=== PATIENT | female | born 1935 | race Two or more races ===

== ENCOUNTER 2017-06-21 11:41 | Emergency (ER) | payer MEDICARE, BC ==
--- OUTSIDE RECORDS SUMMARY | 2017-06-21 12:16 | XMS REPORT ---
:1935 External Reference #:[id number] Author Organization [facility] [employer] Address [address] [place] [address] Phone [phone] Care Team Providers Name Role Phone Luis Enrique Maldonado M.D. Care Team Information Brain Surgeon Unavailable Liliam Whiting MD Primary Care Physician Unavailable Payers Type Date Identification Numbers Payment Provider Subscriber Medicare Primary Policy Number: [id number] Medicare Micki Price PayID: [id number] [address] [place] [address] Commercial Policy Number: [id number] [facility] [place] [facility] [place] Jordin Price PayID: [id number] [address] [address] [place] [address] Problems Date Description Provider Status Onset: 04/22/2011 Posterior rhinorrhea Mynor Mason M.D. Active Onset: 04/22/2011 Gastroesophageal reflux disease Mynor Mason M.D. Active Onset: 04/22/2011 Chronic rhinitis Mynor Mason M.D. Active Family History Date Family Member(s) Problem(s) Comments General None Social History Type Date Description Comments Marital Status Occupation Retired Cigarette Use Used To Smoke Cigarettes But Quit. ETOH Use Current Alcohol Use - 1-3 Days A Week. Recreational Drug Use Denies Drug Use Smoking Patient has never smoked Allergies, Adverse Reactions, Alerts Date Description Reaction Status Severity Comments 05/20/2010 sulfa active hives Medications Medication Date Status Form Strength Qnty SIG Indications Ordering Provider Breast 01/22/ Active 1units wear on Z08 Ho Woon Prosthesis, 2017 the left MD Jemal Left Side chest Aspir-81 00/00/ Active Tablets DR 81mg 1 po qd Unknown 0000 Vitamin D 00/00/ Active Capsules 1000Unit 1 po qd Unknown 0000 Centrum 00/00/ Active Tablets 1 po qd Unknown Silver 0000 Citracal Plus 00/00/ Active Tablets 1 tab po Unknown 0000 bid Aleve 00/00/ Active Capsules 220mg Unknown 0000 Zetia 0000/ Active Tablets 10mg 1 by mouth Unknown 0000 once a day B Complex /00/ Hx Capsules 1 po qd Unknown - 2016 Prednisone /00/ Hx Tablets 2.5mg 2tabs 1 po qod Unknown 0000 - 2015 Ibandronate /00/ Hx Tablets 150mg q month Unknown Sodium - 2016 Flonase / Hx Suspension 50mcg/Act 1units 1 spray Unknown 0000 - both 03/29/ nostrils 2013 qd Omeprazole / Hx Capsules DR 20mg 30caps 1 po qd Unknown - 2014 Ibuprofen / Hx Tablets 200mg 50tabs prn Unknown - 2014 Benadryl / Hx Tablets 25mg 15tabs prn Unknown - 2014 Tagamet HB / Hx Tablets 200mg 1 PO qd Unknown - 2014 Claritin / Hx Capsules 10mg 30caps 1 by mouth Unknown 0000 - every day 2016 Ranitidine 00/ Hx Capsules 150mg 1 by mouth Unknown HCL 0000 - twice a 2016 Vital Signs Date Vital Result Comment 06/09/2017 Weight 152.00 lb Height 63 inches 5'3" BMI (Body Mass Index) 26.9 kg/m2 BP Systolic 149 mmHg BP Diastolic 81 mmHg Heart Rate 63 /min O2 % BldC Oximetry 97 % Body Temperature 98.3 F Pain Level 0 01/22/2017 Weight 150.12 lb Height 63 inches 5'3" BMI (Body Mass Index) 26.6 kg/m2 BP Systolic 124 mmHg BP Diastolic 82 mmHg Heart Rate 82 /min O2 % BldC Oximetry 99 % Body Temperature 97.1 F 01/13/2017 Weight 147.00 lb Height 63 inches 5'3" BMI (Body Mass Index) 26.0 kg/m2 BP Systolic 124 mmHg BP Diastolic 76 mmHg Heart Rate 82 /min O2 % BldC Oximetry 99 % Body Temperature 97.1 F 12/18/2016 Weight 146.00 lb Height 63 inches 5'3" BMI (Body Mass Index) 25.9 kg/m2 BP Systolic 118 mmHg BP Diastolic 76 mmHg Heart Rate 82 /min O2 % BldC Oximetry 99 % Body Temperature 97.1 F 12/08/2016 Weight 147.00 lb Height 63 inches 5'3" BMI (Body Mass Index) 26.0 kg/m2 BP Systolic 123 mmHg BP Diastolic 76 mmHg Heart Rate 61 /min O2 % BldC Oximetry 96 % Body Temperature 98.7 F Pain Level 0 12/05/2016 Weight 149.00 lb Height 63 inches 5'3" BMI (Body Mass Index) 26.4 kg/m2 BP Systolic 128 mmHg BP Diastolic 78 mmHg Heart Rate 61 /min O2 % BldC Oximetry 95 % Body Temperature 97.9 F Pain Level 0 11/27/2016 Weight 157.00 lb Height 63 inches 5'3" BMI (Body Mass Index) 27.8 kg/m2 BP Systolic 156 mmHg BP Diastolic 79 mmHg Heart Rate 45 /min O2 % BldC Oximetry 98 % Body Temperature 98.0 F 11/20/2016 Weight 157.00 lb Height 63 inches 5'3" BMI (Body Mass Index) 27.8 kg/m2 BP Systolic 127 mmHg BP Diastolic 78 mmHg Heart Rate 87 /min O2 % BldC Oximetry 96 % Body Temperature 97.8 F 10/30/2016 Weight 158.00 lb Height 63 inches 5'3" BMI (Body Mass Index) 28.0 kg/m2 BP Systolic 158 mmHg BP Diastolic 77 mmHg Heart Rate 53 /min O2 % BldC Oximetry 96 % Body Temperature 98.0 F Pain Level 0 04/10/2016 Weight 154.25 lb Height 63 inches 5'3" BMI (Body Mass Index) 27.3 kg/m2 BP Systolic 126 mmHg BP Diastolic 76 mmHg Heart Rate 62 /min O2 % BldC Oximetry 98 % Body Temperature 98.3 F 04/19/2015 Weight 148.00 lb Height 63 inches 5'3" BMI (Body Mass Index) 26.2 kg/m2 BP Systolic 112 mmHg BP Diastolic 66 mmHg Heart Rate 59 /min O2 % BldC Oximetry 97 % Body Temperature 98.2 F 11/02/2014 Weight 149.00 lb Height 63 inches 5'3" BMI (Body Mass Index) 26.4 kg/m2 BP Systolic 104 mmHg BP Diastolic 60 mmHg Heart Rate 52 /min O2 % BldC Oximetry 98 % Body Temperature 98.0 F 03/30/2014 Weight 156.00 lb Height 63 inches 5'3" BMI (Body Mass Index) 27.6 kg/m2 BP Systolic 118 mmHg BP Diastolic 66 mmHg Heart Rate 57 /min O2 % BldC Oximetry 98 % Body Temperature 98.0 F 09/28/2013 BP Systolic 104 mmHg BP Diastolic 76 mmHg Heart Rate 65 /min O2 % BldC Oximetry 98 % Body Temperature 98.0 F Pain Level 0 04/27/2012 Weight 153.00 lb Height 62 inches 5'2" BMI (Body Mass Index) 28.0 kg/m2 BP Systolic 124 mmHg BP Diastolic 82 mmHg Heart Rate 64 /min O2 % BldC Oximetry 94 % Body Temperature 98.0 F 03/10/2012 Weight 150.00 lb Height 62 inches 5'2" BMI (Body Mass Index) 27.4 kg/m2 BP Systolic 130 mmHg BP Diastolic 70 mmHg Heart Rate 62 /min O2 % BldC Oximetry 96 % Body Temperature 97.6 F 03/03/2012 Weight 151.12 lb Height 62 inches 5'2" BMI (Body Mass Index) 27.6 kg/m2 BP Systolic 124 mmHg BP Diastolic 70 mmHg Heart Rate 49 /min O2 % BldC Oximetry 98 % Body Temperature 98.1 F 04/22/2011 Weight 151.25 lb Height 62 inches 5'2" BMI (Body Mass Index) 27.7 kg/m2 BP Systolic 120 mmHg BP Diastolic 80 mmHg Heart Rate 56 /min O2 % BldC Oximetry 94 % Body Temperature 97.5 F 10/21/2010 Weight 151.00 lb Height 62 inches 5'2" BMI (Body Mass Index) 27.6 kg/m2 BP Systolic 130 mmHg BP Diastolic 80 mmHg Heart Rate 64 /min Body Temperature 97.9 F 05/20/2010 Weight 152.00 lb Height 62 inches 5'2" BMI (Body Mass Index) 27.8 kg/m2 BP Systolic 128 mmHg BP Diastolic 66 mmHg Heart Rate 63 /min O2 % BldC Oximetry 98 % Body Temperature 97.4 F Results Test Date Test Result H/L Range Note Laboratory test finding 03/03/2012 Cyst, Cutaneous See Note 1 1 OPERATION/PROCEDURE Excision DIAGNOSIS: "RIGHT NECK MASS, EXCISION": EPIDERMOID CYST. Shakeel GROSS The specimen is received in formalin labeled, "RIGHT NECK MASS" are approximately 1.0 mL of soft creamcheese-like material. Submitted in toto in one block. JW/clf MICROSCOPIC Sections show a thin walled cystic structure lined by squamous epithelium with a granular layer with central keratinous debris. PRE OPERATIVE DIAGNOSIS Right neck mass REVIEW CODE CODE: I MEGHANN Mckeon MD 1304 Procedures Date CPT Code Description Status 01/16/2017 86103 Insertion Tunneled Cent Venous Cathr W Subcut Port 5 Completed Yrs Or Oldr 01/16/2017 Bone Mineral Density Test Completed 01/16/2017 Diabetic Retinal Eye Exam Completed 01/16/2017 Diabetic Foot Exam Completed 12/01/2016 31107 Biopsy/Excision Deep Axillary Node(S) Completed 12/01/2016 15598 Biopsy/Excision Deep Axillary Node(S) Completed 12/01/2016 96123 Mastectomy Simple Complete Completed 12/01/2016 28434 Mastectomy Simple Complete Completed 10/06/2016 Mammogram Completed 04/11/2015 Mammogram Completed 03/27/2014 Mammogram Completed 03/03/2012 50667 Exc Benign Lesion, Except Skin Tags .06CM To 1.0CM Completed Diameter 05/20/2010 52205 Fiberoptic Laryngoscopy,Diag. Completed Encounters Type Date Location Provider CPT E/M Dx Office Visit 01/29/2017 1:00p [place] [address] R21 Office Visit 01/13/2017 1:00p [place] [address] C50.012 Office Visit 11/20/2016 1:00p [place] [address] C50.012 Office Visit 10/30/2016 10:30a [place] [address] D48.62 R92.8 Office Visit 04/10/2016 2:30p [place] [address] N60.19 Office Visit 04/19/2015 1:30p [place] [address] N60.19 Office Visit 11/02/2014 1:45p [place] [address] 610.1 Office Visit 03/30/2014 1:00p [place] [address] 610.1 Office Visit 04/27/2012 3:15p Main Office Mynor Mason M.D. 36917 472.0 784.91 530.81 Office Visit 02/11/2012 8:45a Main Office Mynor Mason M.D. 74165 706.2 472.0 Office Visit 04/22/2011 11:15a Main Office Mynor Mason M.D. 27719 784.91 530.81 472.0 Office Visit 10/21/2010 2:15p Main Office Mynor Mason M.D. 84755 530.81 784.91 472.0 Office Visit 05/20/2010 1:30p Main Office Mynor Mason M.D. 32072 530.81 470 Plan of Care 01/29/2017 - Addison Joaquin MDR21 Rash and other nonspecific skin eruptionComments :Skin rash is gone, and dry scab area is showing no drainage nor erythema. As recommended after 11/25/16 MRI, will arrange for 6 month followup right breast MRI in latter part of April before she leaves for [place]. RTO after MRI. Advised to self exam right breast once a month.
--- OUTSIDE RECORDS SUMMARY | 2017-06-21 12:16 | XMS REPORT ---
:1935 External Reference #:[id number] Author Organization [facility] Address [address] [place] [address] Phone [phone] Care Team Providers Name Role Phone Luis Enrique Maldonado M.D. Care Team Information Grounds Foreman Unavailable Liliam Whiting MD Primary Care Physician Unavailable Payers Type Date Identification Numbers Payment Provider Subscriber Medicare Primary Policy Number: [id number] Medicare Micki Price PayID: [id number] [address] [place] [address] Commercial Policy Number: [id number] [facility]/ Jordin Price PayID: [id number] [address] [address] [place] [address] Problems Date Description Provider Status Onset: 04/22/2011 [...] Procedures Date CPT Code Description Status 01/16/2017 15543 Insertion Tunneled Cent Venous Cathr W Subcut Port 5 Completed Yrs Or Oldr 01/16/2017 Bone Mineral Density Test Completed 01/16/2017 Diabetic Retinal Eye Exam Completed 01/16/2017 Diabetic Foot Exam Completed 12/01/2016 04427 Biopsy/Excision Deep Axillary Node(S) Completed 12/01/2016 64235 Biopsy/Excision Deep Axillary Node(S) Completed 12/01/2016 24152 Mastectomy Simple Complete Completed 12/01/2016 64334 Mastectomy Simple Complete Completed 10/06/2016 Mammogram Completed 04/11/2015 Mammogram Completed 03/27/2014 Mammogram Completed 03/03/2012 42806 Exc Benign Lesion, Except Skin Tags .06CM To 1.0CM Completed Diameter 05/20/2010 30178 Fiberoptic Laryngoscopy,Diag. Completed Encounters Type Date Location Provider CPT E/M Dx Office Visit 06/09/2017 1:00p [place] [address] Z08 Office Visit 01/29/2017 1:00p [place] [address] R21 Office Visit 01/13/2017 1:00p [place] [address] C50.012 Office Visit 11/20/2016 1:00p [place] [address] C50.012 Office Visit 10/30/2016 10:30a [place] [address] D48.62 R92.8 Office Visit 04/10/2016 2:30p [place] [address] N60.19 Office Visit 04/19/2015 1:30p [place] [address] N60.19 Office Visit 11/02/2014 1:45p [place] [address] 610.1 Office Visit 03/30/2014 1:00p [place] [address] 610.1 Office Visit 04/27/2012 3:15p Main Office Mynor Mason M.D. 89682 472.0 784.91 530.81 Office Visit 02/11/2012 8:45a Main Office Mynor Mason M.D. 29480 706.2 472.0 Office Visit 04/22/2011 11:15a Main Office Mynor Mason M.D. 04613 784.91 530.81 472.0 Office Visit 10/21/2010 2:15p Main Office Mynor Mason M.D. 28499 530.81 784.91 472.0 Office Visit 05/20/2010 1:30p Main Office Mynor Mason M.D. 06272 530.81 470 Plan of Care 06/09/2017 - Addison Joaquin MDZ08 Encntr for follow-up exam after trtmt for malignant neoplasmComments:Left arm pain is not related to the mastectomy, and again advised to do ROM exercise left shoulder, elbow and wrist and hands joints without weight. Also, encouraged ambulation, with a cane if gait unstable. The subcutaneous stitch is not painful and inflamed, and it will be observed because it willbe removed at the time of removal of the port anyway.Dr. Whiting will follow her medically, and Dr. Maldonado oncologically. I will see her only for a PRN basis, or when she is ready to have the port removed.Yearly right mammogram will be ordered by Dr. Whiting, and Dr. Maldonado will arrange for MRI or other studies if necessary.
[2017-06-21 12:24] VITALS: BP 146/78
--- NOTE | 2017-06-21 13:17 | UC ---
Respiratory Complaint HPI - HPI Summary HPI Summary: 82 yo female with aboout a 2 day hx of cough/fever/chills/runny nose mild myalgias - History of Current Complaint Chief Complaint: UCGeneralIllness Stated Complaint: FLU LIKE Time Seen by Provider: 06/21/17 13:04 Hx Obtained From: Patient Onset/Duration: Gradual Onset, Lasting Days Timing: Constant Severity Initially: Mild Severity Currently: Moderate Pain Intensity: 2 Pain Scale Used: 0-10 Numeric Character: Cough: Productive Aggravating Factors: Nothing Alleviating Factors: Nothing Associated Signs And Symptoms: Positive: Fever, Chills, Nasal Congestion - Allergies/Home Medications Allergies/Adverse Reactions: Allergies Allergy/AdvReac Type Severity Reaction Status Date / Time Sulfa Antibiotics Allergy Hives Verified 06/21/17 12:25 Home Medications: Home Medications Aspirin Low Dose CHEW TAB* [Aspirin Low Dose TAB*] 81 mg PO DAILY 06/21/17 [ History Confirmed 06/21/17] Biotin 1 mg PO DAILY 06/21/17 [History Confirmed 06/21/17] Calcium Citrate-Vitamin D [Citracal + D3 Maximum] 1 tab PO DAILY 06/21/17 [ History Confirmed 06/21/17] Ezetimibe TAB* [Zetia TAB*] 10 mg PO DAILY 06/21/17 [History Confirmed 06/21/17] Multivitamins/Minerals TAB* [Theragran/minerals TAB*] 1 tab PO DAILY 06/21/17 [ History Confirmed 06/21/17] Trastuzumab* [Herceptin*] 1 dose IV SEE INSTRUCTIONS 06/21/17 [History Confirmed 06/21/17] PMH/Surg Hx/FS Hx/Imm Hx Previously Healthy: Yes Respiratory History: Bronchitis Cancer History: Breast Cancer - Surgical History Surgical History: Yes Surgery Procedure, Year, and Place: - left mastectomy. - port placement - Social History Alcohol Use: Occasionally Substance Use Type: None Smoking Status (MU): Never Smoked Tobacco Review of Systems Constitutional: Fever, Chills, Fatigue Skin: Negative Eyes: Negative ENT: Nasal Discharge Respiratory: Cough Cardiovascular: Negative Gastrointestinal: Negative Genitourinary: Negative Motor: Negative Neurovascular: Negative Musculoskeletal: Negative Neurological: Negative Psychological: Negative Is Patient Immunocompromised?: No All Other Systems Reviewed And Are Negative: Yes Physical Exam Triage Information Reviewed: Yes Appearance: Well-Appearing, No Pain Distress, Well-Nourished Vital Signs: Initial Vital Signs Temp 101.0 F 06/21/17 12:20 Pulse 82 06/21/17 12:20 Resp 16 06/21/17 12:20 BP 146/78 06/21/17 12:20 Pulse Ox 95 06/21/17 12:20 Vital Signs Reviewed: Yes Eyes: Positive: Conjunctiva Clear ENT: Positive: Hearing grossly normal, Nasal congestion, TMs normal. Negative: Trismus, Muffled voice, Hoarse voice, Dental tenderness, Sinus tenderness Neck exam: Normal Neck: Positive: Supple, Nontender, No Lymphadenopathy Respiratory: Positive: Lungs clear, Normal breath sounds, No respiratory distress Cardiovascular: Positive: RRR, No Murmur Musculoskeletal: Positive: ROM Intact, No Edema Neurological: Positive: Alert Psychological Exam: Normal Skin Exam: Normal UC Diagnostic Evaluation - Laboratory Pertinent Lab Values Are: WNL Except: - flu B (+) O2 Sat by Pulse Oximetry: 95 - low normal/not hypoxic - Radiology Xray Interpretation: No Acute Changes - 1. THE LUNGS ARE GROSSLY CLEAR. Radiology Interpretation Completed By: Radiologist Respiratory Course/Dx - Differential Dx/Diagnosis Provider Diagnoses: influenza Discharge - Discharge Plan Condition: Stable Disposition: HOME Prescriptions: Oseltamivir CAP* [Tamiflu CAP*] 75 mg PO BID #10 cap Patient Education Materials: Influenza (ED) Referrals: Liliam Whiting MD [Primary Care Provider] - 5 Days
--- NOTE | 2017-06-21 13:31 | RAD ---
INDICATION: Fever and cough COMPARISON: None TECHNIQUE: PA and lateral views of the chest were obtained. FINDINGS: There is a right subclavian vein Mediport with the tip terminating at the superiormost portion of the superior vena cava. The heart and mediastinum are normal in size and contour. There is mild calcified atherosclerosis overlying the arch of the aorta. There is mild aneurysmal dilatation at the arch of the aorta measuring 3.6 cm in diameter. There are no previous images for comparison to comment on chronicity of this finding. The lungs are grossly clear. There is no evidence of large pleural effusion. Visualized bones are normal for the patient's age. There is no radiographic evidence of free air beneath the diaphragm IMPRESSION: 1. THE LUNGS ARE GROSSLY CLEAR. 2. THE ARCH OF THE AORTA APPEARS TOP NORMAL MEASURING UP TO 3.6 CM IN DIAMETER. THIS IS PROBABLY A CHRONIC FINDING BUT THERE ARE NO PRIOR IMAGES OF THE CHEST TO BE CERTAIN ABOUT CHRONICITY. IF PRIOR CHEST IMAGING CAN BE MADE AVAILABLE, COMPARISON CAN BE MADE TO COMMENT ON CHRONICITY.
== END 2017-06-21 14:00 | disposition home or self-care (01) ==
LOC: UCCORT 11:41
DX: J11.1 Influenza due to unidentified influenza virus with other respiratory manifestations (principal); Z88.2 Allergy status to sulfonamides
CPT/HCPCS: 71020; 87502; 99212; G0463